=== PATIENT | male | born 1970 | race Caucasian/White ===

== ENCOUNTER 2018-08-21 11:07 | Day surgery (SDC) | payer OTHER ==
[2018-08-17 14:16] VITALS: BMI 57.6
[2018-08-21] MEDS ORDERED: fentaNYL CITRATE 250 MCG/5 ML VIAL ONE ×2 (14:56→15:51)
[2018-08-21] MEDS ORDERED: PROPOFOL 20 ML ONE ×2 (14:56)
[2018-08-21] MEDS ORDERED: SUCCINYLCHOLINE CHLORIDE 200 MG/10 ML VIAL ONE (14:57)
[2018-08-21] MEDS ORDERED: MIDAZOLAM HCL 2 MG/2 ML SINGLE DOSE VIAL ONE (14:57)
[2018-08-21] MEDS ORDERED: BUPIVACAINE HCL/PF 2.5 MG/ML - 30 ML VIAL IJ ONE (15:05)
[2018-08-21] MEDS ORDERED: NEOSTIGMINE METHYLSULFATE 0.5 MG/ML - 10 ML MDV ONE (16:26)
[2018-08-21] MEDS ORDERED: GLYCOPYRROLATE 0.2 MG/1 ML VIAL ONE (16:44)
[2018-08-21] MEDS ORDERED: LIDOCAINE HCL/PF 2% SDV 5ML VIAL ONE (17:01)
[2018-08-21] MEDS ORDERED: DEXAMETHASONE SOD PHOSPHATE 4 MG/1 ML VIAL ONE (17:01)
[2018-08-21] MEDS ORDERED: ONDANSETRON 4 MG/2 ML VIAL ONE (17:01)
[2018-08-21] MEDS ORDERED: KETOROLAC TROMETHAMINE 30 MG/1 ML VIAL ONE (17:01)
[2018-08-21] MEDS ORDERED: ENOXAPARIN NA (PORCINE) 40 MG/0.4 ML DISP.SYRIN SQ ONE ×2 (17:28→18:43)
[2018-08-21] MEDS ORDERED: SODIUM CHLORIDE 1,000 ML IV SCH (17:30)
[2018-08-21] MEDS ORDERED: oxyCODONE HCL 5 MG TABLET PO PRN ×3 (17:33→17:36)
[2018-08-21] MEDS ORDERED: ONDANSETRON 4 MG/2 ML VIAL IVPUSH PRN ×2 (17:33→17:36)
[2018-08-21] MEDS ORDERED: PROMETHAZINE HCL 25 MG/1 ML VIAL IVPUSH PRN (17:36)
--- NOTE | 2018-08-21 17:40 | OP ---
Operative Note - Note: Operative Date: 08/21/18 Pre-Operative Diagnosis: Morbid Obesity. Diabetes Mellitus. Hypertension. Elevated LFT Operation: Laparoscopic Gastric Band for Gastric Restriction. Wedge Biopsy of left lobe of liver. Diagnostic Laparoscopy Findings: 30 cc proximal gastric pouch created Wedge biopsy performed on left lobe of liver Implants: gastric band plus subcutaneous port component Post-Operative Diagnosis: Same as Pre-op (Hepatomegaly) Surgeon: Sunday Sarmiento Field Service Coordinator: Joshua Bhardwaj Anesthesia: General Specimens Removed: Wedge Biopsy of left lobe of liver Estimated Blood Loss (mls): 30 Operative Report Dictated: Yes
[2018-08-21] MEDS ORDERED: FAMOTIDINE 20 MG/50 ML IVPB 20 MG/50 ML MG IVPB ONE (18:43)
[2018-08-21 19:15] VITALS: TEMP 98
[2018-08-21 19:24] LABS: HEMOGLOBIN 15.1 GM/dl (11.7-16.9); MCH 29.9 pg (25.7-33.7); MCHC 33.5 g/dl (32.0-35.9); MEAN CELL VOLUME 89.2 fl (80-96); MEAN PLT VOLUME 8.3 fl (7.5-11.1); PLATELET COUNT 277 K/MM3 (134-434); RBC 5.04 M/mm3 (4.00-5.60); RDW 11.9 % (11.9-15.9); WHITE BLOOD COUNT 13.5 K/mm3 (4.0-10.8)
[2018-08-21 19:25] LABS: ANION GAP 14 MMOL/L (8-16); BLOOD UREA NITROGEN 18 mg/dl (7-18); CHLORIDE 98 mmol/L (98-107); CO2 22 mmol/L (21-32); CREATININE 1.3 mg/dl (0.55-1.3); GLUCOSE,RANDOM 196 mg/dl (74-106); POTASSIUM 3.7 mmol/L (3.5-5.1); SODIUM 134 mmol/L (136-145)
[2018-08-21 20:11] VITALS: BP 123/70; PULSE 92
[2018-08-21] MEDS ORDERED: FAMOTIDINE 20 MG/50 ML IVPB 20 MG/50 ML MG IVPB SCH (22:00)
--- NOTE | 2018-08-22 00:58 | OP ---
DATE OF OPERATION: 08/21/2018 PREOPERATIVE DIAGNOSIS: 1. Morbid obesity. 2. Diabetes mellitus. 3. Hypertension. 4. Elevated liver function tests. POSTOPERATIVE DIAGNOSIS: 1. Morbid obesity. 2. Diabetes mellitus. 3. Hypertension. 4. Elevated liver function tests. 5. Hepatomegaly. PROCEDURE PERFORMED: 1. Gastric band for gastric restriction. 2. Wedge biopsy left lobe of the liver. 3. Diagnostic laparoscopy. OPERATIVE SURGEON: Sunday Sarmiento M.D. TICKET TAKER FERRYBOAT: Joshua Bhardwaj M.D. ANESTHESIA: General. OPERATIVE PROCEDURE: The patient was brought into the operating room, placed on the OR table in the supine position. All precautions were taken initially including padding for the back and the feet, and Venodyne boots were placed on both lower extremities. At that point, the abdomen was prepped and draped in the usual manner. A Veress needle was placed in the left upper quadrant, and a pneumoperitoneum was established. A number 12 bladeless trocar was placed in the left upper quadrant through the trocar, laparoscopic camera was placed. Under direct vision, a number 12 bladeless trocar was placed below the left costal margin in the left upper quadrant. The camera was now placed through that port, and then under direct vision a number 15 and a number 5 bladeless trocar were placed in the right upper quadrant. A Rebecca liver retractor was then placed in the epigastrium to retract the left lobe of the liver. The left lobe was extremely enlarged and difficult to retract because it was heavy. It was therefore decided because of elevated liver function tests that a wedge biopsy would be performed. With the electrocautery turned high, first the capsule and then the parenchyma of the liver on the inferior edge was bisected so that a triangular piece of liver was taken and sent off the field as specimen to pathology. There was slight bleeding from the parenchyma which was easily controlled with electrocautery. At this juncture the patient was placed in 20-degree reverse Trendelenburg position by anesthesia. As the liver retractor was moved to the patient's left upper quadrant to better retract the liver and better visualize the left upper quadrant, the portfolio assistant surgeon retracted the omentum inferiorly. The operating surgeon pulled the stomach towards the patient's right side, and electrocautery was use to score the perineum over the left esophagogastric junction and that continued superiorly until the left karen of the diaphragm was noted. The stomach was then pulled to the patient's left side by the portfolio assistant surgeon as the operating surgeon located the cordate lobe of the liver. An opening was made in the avascular plane, and the gastrohepatic ligament was divided with hemoclips up toward the right esophagogastric junction. The right karen of the diaphragm was noted in the peritoneum anterior to it was scored with electrocautery. A laparoscopic instrument was then used to make a blunt tunnel from the right to the left karen until it was free in the left upper quadrant of the abdomen. The gastric band, which was an AP large band, was then prepped by the OR team, placed with a number 15 port site. The band tube was placed into laparoscopic instrument which was pulled and drawn to the patient's right side. The band tube was placed into the band buckle, which was tied and and cinched down, and the band was rotated to the patient's right side. The laparoscopic instrument easily fit between the band and the anterior stomach wall. At this point, the band tubing was brought out number 15 port site under direct vision, all trocars were removed, and the pneumoperitoneum released. The number 15 right upper quadrant port site was now extended laterally and dissection continued down with electrocautery down to the right anterior rectus muscle fashion. 2-0 Prolene sutures were placed on all 4 sides, and the port was then attached to the right anterior rectus muscle fascia. 2-0 Prolene was also used to close the number 15 port site to prevent internal hernia. All trocar sites received 0.25% Marcaine and were closed with 4-0 Biosyn in subcuticular fashion. Dressings were applied, patient awoken from anesthesia and transferred out of the operating room to the recovery room in stable condition. Anesthesia in the case was general. Surgeon was Dr. Sarmiento, portfolio assistant Dr. Bhardwaj, expected blood loss was 30 mL. Patient transferred to recovery room in stable condition. Rochelle [id number]
--- NOTE | 2018-08-23 15:50 | PATH ---
Surgical Pathology Report Patient Name: RATNA JARVIS Med. Rec. #: [id number] /Age/Gender: 1970 (Age: 48) / M Account: [id number] Location: [facility] Taken: 08/21/2018 Received: 08/21/2018 Reported: 08/23/2018 Physicians: Sunday Sarmiento M.D. Specimen(s) Received LIVER BIOPSY Clinical History Morbid obesity Final Diagnosis LIVER, BIOPSY: STEATOHEPATITIS, MILD TO MODERATE; SEVERE STEATOSIS (~85%). MILD PERIVENULAR, MILD TO MODERATE PERISINUSOIDAL, MILD TO MODERATE PORTAL AND PERIPORTAL FIBROSIS (STAGE I-II OF 4). SEE COMMENT. Comment: Biopsy is subcapsular with areas of marked thermal artifact. The liver parenchyma demonstrates severe mixed macro and macrovesicular steatosis (~85%). Mixed inflammatory infiltrate comprised of lymphocytes and neutrophils are seen in portal tracts. No plasmacytosis is present. No significant bile injury is seen. No granulomas are present. Hepatocyte ballooning is noted. The trichrome stain highlights mild perivenular, mild to moderate perisinusoidal, mild to moderate portal and periportal fibrosis. No increase in iron seen by Iron special stain. Overall, findings show mild to moderate steatohepatitis and severe steatosis; stage 1-2 of 4 (Brunt). Etiologies include alcohol and alcoholic liver injury including metabolic conditions, drug or toxin injury. Suggest clinical and serologic correlation. Electronically Signed Beata Prince M.D. Gross Description Received in formalin labeled "liver biopsy" is a 1.4 x 1.1 x 0.6 cm doss portion of soft tissue, consistent with a portion of liver. The specimen is bisected and entirely submitted in one cassette. /08/22/201808/22/2018
== END 2018-08-21 20:12 | disposition home or self-care (01) ==
LOC: FASU 11:07 → EDSTATUS 13:00 → FASU 20:12
PROVIDERS: ATTEND Surgery
PROC: 0WBH4ZX Excision of Retroperitoneum, Percutaneous Endoscopic Approach, Diagnostic (ICD-10-PCS; 2018-08-21)
PROC: 0DV64CZ Restriction of Stomach with Extraluminal Device, Percutaneous Endoscopic Approach (ICD-10-PCS; principal; 2018-08-21 15:49)
DX: E66.01 Morbid (severe) obesity due to excess calories (principal); E11.9 Type 2 diabetes mellitus without complications; I10 Essential (primary) hypertension; R94.5 Abnormal results of liver function studies; R16.0 Hepatomegaly, not elsewhere classified; Z68.43 Body mass index [BMI] 50.0-59.9, adult
CPT/HCPCS: 36415; 74241-TC-FY; 80048; 82962; 85027; 88305-TC; 88313-TC; 94760